=== PATIENT | female | born 1965 | race Caucasian/White ===

== ENCOUNTER 2024-03-06 05:55 | Day surgery (SDC) | payer OTHER, SELFPAY ==
--- NOTE | 2023-12-17 08:20 | CM ---
Addendum entered by Shanna Patton 01/31/24 11:22:
Patient's surgery date has been changed to 03/06/24. Spoke with patient via telephone. Reintroduced role of Orthopedic Navigator and confirmed information previously obtained for case management assessment. She states that her is still in
rehab and will be there when she has surgery. Also discussed orthopedic program and post surgical plans. Reviewed anticipated length of stay and that goal is for her to return home at discharge. Also reviewed outpatient PT. Patient is in agreement
with tentative plan and will go directly to outpatient PT at [facility]. She states that she will have support from her son and daughter.
Original Note:
Patient is scheduled for an elective L TKR on 01/17/24. Spoke with patient prior to surgery via telephone. Introduced role of Orthopedic Navigator. Patient reports that she lives with her (her was recently in rehab. His sister will be
coming to assist him when patient has her surgery), daughter, son-in-law, grandson and son in a two story home. There are three steps to enter and a flight of steps to the second floor. She currently functions independently. She has a shower seat.
She has never had VN services. PCP is Dr. Armida Maravilla.
Discussed orthopedic program and post surgical plans. Reviewed anticipated length of stay and that goal is for her to return home at discharge. Also Reviewed outpatient PT. Patient is in agreement with tentative plan and will go directly to
outpatient PT at [facility]. She will have support from her daughter and son when she goes home.
Patient will complete online education.
Plan: Orthopedic Navigator will remain available to assist with the care of patient and will reassess discharge needs after surgery.
[2023-12-27 14:17] VITALS: BMI 38.6
[2023-12-27 14:39] LABS: Hemoglobin 13.9 g/dL (12.0-16.0); Mean Corp Hgb Conc. 34.8 g/dL (33.0-37.0); Mean Corpuscular Hgb 28.3 pg (27.0-31.0); Mean Corpuscular Volume 81.3 fL (81.0-99.0); Red Blood Cell Count 4.92 10^6/uL (4.20-5.40); Red Cell Dist. Width 13.3 % (11.5-14.5); White Blood Cell Count 10.7 10^3/uL (4.8-10.8)
[2023-12-27 14:52] LABS: ALT (SGPT) 17 U/L (0-35); AST (SGOT) 26 U/L (14-36); Albumin 4.4 g/dl (3.5-5.0); Alkaline Phosphatase 128 U/L (38-126); Blood Urea Nitrogen 18 mg/dl (7-17); Calcium 9.4 mg/dl (8.4-10.2); Carbon Dioxide 26 mmol/L (22-30); Chloride 99 mmol/L (98-107); Estimated Creatinine Clearance 65 ml/min; Glucose 164 mg/dl (70-99); Potassium 4.2 mmol/L (3.5-5.1); Sodium 134 mmol/L (135-145); Total Bilirubin 1.1 mg/dl (0.2-1.3); Total Protein 7.7 g/dl (6.3-8.2); eGFR > 60.00
[2023-12-27 14:55] LABS: Glycohemoglobin (HgbA1c) 8.7 % (4.0-5.6)
[2023-12-27 15:24] LABS: Mean Platelet Volume 13.4 fL (7.4-10.4)
[2023-12-27 15:25] LABS: Platelet Count 93 10^3/uL (130-400)
--- NOTE | 2023-12-28 08:26 | W.PN.UPDATE ---
Update Note
Progress Note Update
Thrombocytopenia
Platelets 93-spoke to patient-this occasionally happens and was told she has low platelets from PCP. Has not had excessive bleeding following other surgeries. Await PCP note.
Type 2 IDDM uncontrolled A1C 8.7
Increased Tresiba insulin to 32Uinits and if tolerating advised 35U. Am sugar typically not <150. Advised strict carb control and to keep record of am pm sugar readings. Will discuss with her in one week.
Coronary risk factors
-increased risk due to age, obesity, DM, HTN, HLD
-Nuclear stress ordered by cards [facility] for 01/13.
[2024-02-11 12:11] VITALS: BMI 38.6
[2024-02-16 12:19] VITALS: BMI 38.0
[2024-02-16 14:06] LABS: Hematocrit 42.1 % (37.0-47.0); Hemoglobin 13.9 g/dL (12.0-16.0); Mean Corpuscular Hgb 27.4 pg (27.0-31.0); Mean Corpuscular Volume 82.9 fL (81.0-99.0); Red Blood Cell Count 5.08 10^6/uL (4.20-5.40); Red Cell Dist. Width 13.4 % (11.5-14.5); White Blood Cell Count 11.1 10^3/uL (4.8-10.8)
[2024-02-16 14:31] LABS: Glycohemoglobin (HgbA1c) 5.5 % (4.0-5.6)
[2024-02-16 14:44] LABS: ALT (SGPT) 11 U/L (0-35); AST (SGOT) 19 U/L (14-36); Albumin 4.3 g/dl (3.5-5.0); Alkaline Phosphatase 136 U/L (38-126); Blood Urea Nitrogen 20 mg/dl (7-17); Calcium 9.9 mg/dl (8.4-10.2); Carbon Dioxide 26 mmol/L (22-30); Chloride 99 mmol/L (98-107); Estimated Creatinine Clearance 63 ml/min; Glucose 45 mg/dl (70-99); Potassium 4.4 mmol/L (3.5-5.1); Sodium 135 mmol/L (135-145); Total Bilirubin 0.7 mg/dl (0.2-1.3); Total Protein 7.8 g/dl (6.3-8.2); eGFR > 60.00
[2024-02-16 14:51] LABS: Mean Platelet Volume 13.9 fL (7.4-10.4); Platelet Count 86 10^3/uL (130-400)
--- NOTE | 2024-02-16 15:19 | W.PREADMORTH ---
Ortho Preadmission Testing
-
Blood glucose today notably low at 45.
Pt has a history of well controlled diabetes. A1c today 5.5.
Pt did report not eating prior to her pre-op eval.
The patient, since then, has eaten lunch and feels well. Denies any lightheadedness.
Did ask that the patient have candy or juice near by in the event her BS drops too low in the future.
Her blood sugar will be checked the morning of her procedure and continuously throughout her admission.
Thrombocytopenia - chronic; however, platelet count has dropped from 93,000 12/2023 to 86,000 02/16/2024.
Will discuss with PCP prior to surgery.
--- NOTE | 2024-02-16 15:23 | HPS.HSE ---
Family Physician
-
Family Physician: Armida Maravilla
Chief Complaint
-
Advanced primary osteoarthritis of the left knee.
History of Present Illness
The patient is an 78-year-old female presenting today for advanced primary osteoarthritis of the left knee. She presents to [facility] today with complaints of significant left knee pain associated with her osteoarthritis. She
notes that her current left knee pain is greatly interfering with her activities of daily living and is overall impacting her quality of life. She has tried and failed multiple conservative treatment measures in the past for her left knee pain.
These conservative treatment measures include self therapeutic exercises, activity modification, corticosteroid injections, medical management with Tylenol, NSAIDs, Gabapentin, and Tramadol, and the application of ice and/or heat. Recent x-ray
findings of the left knee demonstrated advanced osteoarthritis, bone on bone in the medial compartment, and periarticular spurs about the patellofemoral compartment. She was determined to be in need of a left total knee arthroplasty. She denies any
current complaints today such as chest pain, shortness of breath, palpitations, nausea, vomiting, diarrhea, lightheadedness, dizziness, cough, sore throat, or fever.
Medical History
Past Medical History
Past Medical History: Reports Other
Additional Past Medical History:
1. Osteoarthritis.
2. Hypertension.
3. Hyperlipidemia.
4. Type 2 insulin-dependent diabetes with neuropathy, hemoglobin A1c 5.5.
5. Anxiety.
6. Osteoporosis.
7. Insomnia.
8. Mild leukocytosis, asymptomatic.
9. Chronic thrombocytopenia.
10. Obesity, BMI 38.0.
Past Surgical History: Reports Other
Additional Past Surgical History:
1. Right achillies tendon repair.
2. .
3. Multiple D&Cs.
Social History
Tobacco: Non-smoker
Alcohol: Occasional
Living: With Family (in a 2 story home. )
Family History
Family History: Not pertinent
Allergies / Home Medications
Allergy/Medication List:
HOME MEDICATIONS:
1. Jardiance 10 mg p.o. daily.
2. Gabapentin 600 mg p.o. three times a day.
3. Tresiba 28 units subcutaneous daily.
4. Avapro 300 mg p.o. daily.
5. Melatonin 10 mg p.o. at bedtime.
6. Meloxicam 15 mg p.o. daily.
7. Ozempic 1 mg subcutaneous weekly on Fridays.
8. Sertraline 100 mg p.o. daily.
9. Tramadol 50 mg p.o. three times a day.
ALLERGIES: Sulfa.
Review of Systems
-
A 12 point ROS was completed and negative except as noted: Yes
Physical Exam
Vital Signs
Blood pressure 129/72. Heart rate 74. Respirations 18. Pulse ox 95%.
Height 4 feet, 8.5 inches. Weight 78.2 kg. BMI 38.0.
Physical Exam
General: Well Developed, Well Nourished and No Apparent Distress
HEENT: NormoCephalic, Moist mucous membranes, Atraumatic and PERRLA
Respiratory: Clear
Cardiac: Regular Rhythm
GI: Soft, Non Tender, Non Distended and Other (Obese. )
Musculoskeletal: Other (Left knee: range of motion 10-110, mild pain with flexion, positive medial and lateral joint line tenderness with patellar grind. Small effusion. Mild instability to valgus stress. )
Skin: Warm and Dry
Neuro: AO x 3 and Nonfocal/grossly intact
Laboratory Results
-
02/16/24 12:16
02/16/24 12:16
Laboratory Results
Total Bilirubin 0.7 mg/dl (0.2-1.3) 02/16/24 12:16
AST 19 U/L (14-36) 02/16/24 12:16
ALT 11 U/L (0-35) 02/16/24 12:16
Alkaline Phosphatase 136 U/L (38-126) H 02/16/24 12:16
MRSA screen negative.
EKG 12/27/2023: Normal sinus rhythm.
Impression/Plan
-
IMPRESSION/PLAN:
1. Primary medical, Dr. Armida Zafar, pending.
Primary medical phone number: [phone].
2. Cardiology, Dr. Houston Art, pending.
3. Dental waived.
IMPRESSION/PLAN:
1. Advanced primary osteoarthritis of the left knee in need of a left total knee arthroplasty by Dr. Deshaun Hooks on 03/06/2024. The benefits and risks of the procedure have been explained to the patient. The patient understands these risks and
wishes to proceed.
2. Deep vein thrombosis prophylaxis: Aspirin with bilateral venous compression devices.
3. Chronic thrombocytopenia: This was discussed with the patient's primary care physician pre-operatively. Per the patient, her platelet count has always been low and she has never had issues with extensive bleeding after one of her prior
procedures. Although low, her primary care physician, Dr. Armida Zafar, anticipates no post-operative issues with her current platelet count.
4. Hypoglycemia on pre-operative testing: The patient's glucose was notably low in the setting of prolonged fasting. She was given advise pre-operatively on ways to increase her blood sugar if needed. Her blood sugar will be reassessed with an
AccuCheck the morning of her procedure.
Patient's phone number: [phone].
Patient's contact (Deanna Deleon - Daughter): [phone].
[2024-02-16 15:49] VITALS: BMI 38.0
[2024-03-06] VITALS (12 sets, daily range): BP systolic 113–166; BP diastolic 63–97; PULSE 75–80; O2SAT 98; BMI 38.0
[2024-03-06 06:28] LABS: Glucose - Point of Care 190 mg/dl (70-99)
[2024-03-06] MEDS: MOBIC 15 MG PO (06:31)
[2024-03-06] MEDS: TYLENOL 650 MG PO ×4 (06:31→21:00)
[2024-03-06] MEDS: NORMOSOL-R 1000 IV ×3 (06:31→19:29)
[2024-03-06] MEDS: BACTROBAN NASAL 1 GRAM NASAL (06:32)
[2024-03-06] MEDS: NOVOLOG vial 1 UNITS SC ×2 (06:51→09:20)
[2024-03-06] MEDS: DILAUDID 0.25 MG IV ×4 (08:55→09:29)
[2024-03-06 09:02] LABS: Glucose - Point of Care 249 mg/dl (70-99)
[2024-03-06] MEDS: ROXICODONE 5 MG PO (09:32)
[2024-03-06] MEDS: AVAPRO 300 MG PO (10:36)
[2024-03-06] MEDS: ZOLOFT 50 MG PO (10:37)
[2024-03-06] MEDS: NEURONTIN 600 MG PO ×3 (12:26→21:18)
[2024-03-06] MEDS: DILAUDID 0.5 MG IV ×2 (12:27→21:56)
--- NOTE | 2024-03-06 12:30 | W.PN.ORTHO ---
Today's Communication / Plan
-
D/c when clinically stable
Assessment
.
Distal Motor Intact: Yes
Dressing:
Clean, dry and intact.
Assessment:
L knee OA s/p L TKA w/ Dr Hooks 03/06/2024
DVT prophylaxis - ASA, b/l venous foot pumps
HTN - + parameters - monitor BP
Type 2 insulin-dependent diabetes with neuropathy, hemoglobin A1c 5.5 - monitor BS
- Resume home medications
- + SSI
- Diabetic, carb controlled diet
Chronic thrombocytopenia - monitor for potential bleeding
- Recheck platelet count in AM
- Minimize NSAIDs (except ASA) post-procedure to avoid drug induced thrombocytopenia
Hyperlipidemia
Anxiety
Osteoporosis
Insomnia
Mild leukocytosis, asymptomatic
Obesity, BMI 38.0
Plan
.
Surgery / Date: L TKA w/ Dr Hooks 03/06/2024
DVT Prophylaxis: Aspirin
Activity:
Out of bed.
PT/OT
Discharge Plan: Home w/ Outpatient PT
Subjective
.
.:
Patient resting comfortably in her chair.
L knee pain /10 but tolerable per patient.
Denies any new significant complaints.
Vital Signs and Labs
.
Vital Signs and Labs:
Lab Results
02/16/24 12:16
02/16/24 12:16
Temp Pulse Resp BP Pulse Ox
97.4 F 79 16 166/93 97
03/06/24 09:58 03/06/24 10:36 03/06/24 09:30 03/06/24 10:36 03/06/24 09:58
Physical Exam
-
HEENT: No pallor, cyanosis, or jaundice. Throat clear.
NECK: Supple. No JVD.
RESPIRATORY: Lungs clear to auscultation.
CVS: S1, S2 normal. RRR.�
ABDOMEN: Soft, non-tender. No distension. Obese.
EXTREMITIES: Strength equal, no calf pain with palpation/dorsiflexion. Calves soft.
ABRASIVE COATING MACHINE OPERATOR: AOx3. No focal deficits. payment manager grossly intact
[2024-03-06 12:32] LABS: Glucose - Point of Care 298 mg/dl (70-99)
[2024-03-06] MEDS: JARDIANCE 10 MG PO (12:32)
[2024-03-06] MEDS: LANTUS 0.280000000000000027 UNITS SC (12:32)
[2024-03-06] MEDS: NOVOLOG FLEXPEN-MODERATE RESISTANCE 5 UNITS SC (12:36)
[2024-03-06] MEDS: LIDOCAINE 4% PATCH 2 PATCH TOPICAL (12:44)
[2024-03-06] MEDS: TYLENOL PO ×2 (13:34→23:48)
[2024-03-06] MEDS: ANCEF 5 IV ×2 (15:04→22:34)
[2024-03-06 16:27] LABS: Glucose - Point of Care 348 mg/dl (70-99)
[2024-03-06] MEDS: NOVOLOG FLEXPEN-MODERATE RESISTANCE 7 UNITS SC (16:32)
[2024-03-06] MEDS: NOVOLOG FLEXPEN 2 UNITS SC (16:33)
[2024-03-06] MEDS: ASPIRIN 325 MG PO (18:04)
[2024-03-06] MEDS: BACTROBAN 2% OINTMENT 1 APPLIC NASAL (21:00)
[2024-03-06] MEDS: SENOKOT 17.1999999999999993 MG PO (21:00)
[2024-03-06] MEDS: COLACE 100 MG PO (21:00)
[2024-03-06] MEDS: PEPCID 20 MG PO (21:22)
[2024-03-06] MEDS: MELATONIN 10 MG PO (21:22)
[2024-03-06] MEDS: TOPROL XL 25 MG PO (21:38)
[2024-03-06 21:43] LABS: Glucose - Point of Care 218 mg/dl (70-99)
[2024-03-07] MEDS: TYLENOL 650 MG PO ×2 (00:17→09:06)
[2024-03-07 02:52] VITALS: BP 116/59
[2024-03-07] MEDS: TYLENOL PO ×3 (05:16→13:48)
[2024-03-07 06:00] VITALS: BMI 39.7
[2024-03-07 07:36] VITALS: BP 142/76
[2024-03-07 07:48] LABS: Platelet Count 78 10^3/uL (130-400)
[2024-03-07 07:48] LABS: Glucose - Point of Care 165 mg/dl (70-99)
--- NOTE | 2024-03-07 08:45 | CM ---
Addendum entered by Shanna Patton 03/07/24 12:07:
Patient needs a fran rolling walker for home use. Script obtained and given to PT.
Addendum entered by Shanna Patton 03/07/24 12:05:
Patient did well with therapy. She has no concerns about discharge plans and has updated her family.
Original Note:
Reviewed chart and held rounds with PT, OT and nursing. Patient admitted as planned for elective L TKR. Met with patient at bedside. Confirmed information previously obtained for assessment. Also discussed discharge plans. The plan is for patient to
return home at discharge. She will have support from her daughter and son other when she goes home. Patient will go directly to outpatient PT and will go to [facility]. She has an appointment scheduled for , 03/09.
Patient has a rolling walker (which was her husbands's; PT to evaluate need for fran rolling walker), cane, commode and shower seat.
She will use [facility] pharmacy for discharge prescriptions.
[2024-03-07] MEDS: AVAPRO 300 MG PO (09:06)
[2024-03-07] MEDS: COLACE 100 MG PO (09:06)
[2024-03-07] MEDS: ZOLOFT 50 MG PO (09:06)
[2024-03-07] MEDS: ASPIRIN 325 MG PO (09:06)
[2024-03-07] MEDS: SENOKOT 17.1999999999999993 MG PO (09:06)
[2024-03-07] MEDS: BACTROBAN 2% OINTMENT 1 APPLIC NASAL (09:07)
[2024-03-07] MEDS: LIDOCAINE 4% PATCH 2 PATCH TOPICAL (09:07)
[2024-03-07 09:10] VITALS: BP 128/65; BP 137/70; PULSE 84; O2SAT 95
[2024-03-07] MEDS: NOVOLOG FLEXPEN-MODERATE RESISTANCE 1 UNITS SC (09:10)
[2024-03-07] MEDS: NOVOLOG FLEXPEN 2 UNITS SC (09:11)
--- NOTE | 2024-03-07 09:14 | W.PN.ORTHO ---
Today's Communication / Plan
-
Await PT recs.
D/c later today if remaining clinically stable.
Assessment
.
Distal Motor Intact: Yes
Dressing:
Trace old incisional bleeding. Dressing otherwise C/D/I.
Assessment:
L knee OA s/p L TKA w/ Dr Hooks 03/06/2024
DVT prophylaxis - ASA, b/l venous foot pumps
HTN - + parameters - BPs overall stable
Type 2 insulin-dependent diabetes with neuropathy, hemoglobin A1c 5.5 - BS readings initially elevated 2* surgical stress, IV Decadron in OR, and holding of weekly Ozempic prior to surgery
- BS readings improving, however, w/ resumption of Jardiance, recent increase in Lantus, Novolog 2 units standing order and SSI AC
- Can resume usual diabetic regimen upon d/c
- Continue a diabetic, carb controlled diet
Chronic thrombocytopenia - no overt bleeding noted
- Platelet count 78,000 POD 1 (was 86,000 pre-op). Platelet count >70,000 should be adequate for healing.
- Minimize NSAIDs (except ASA) post-procedure to avoid drug induced thrombocytopenia
Hyperlipidemia
Anxiety
Osteoporosis
Insomnia
Mild leukocytosis, asymptomatic
Obesity, BMI 38.0
Plan
.
Surgery / Date: L TKA w/ Dr Hooks 03/06/2024
DVT Prophylaxis: Aspirin
Activity:
Out of bed.
PT/OT
Discharge Plan: Home w/ Outpatient PT
Subjective
.
.:
Patient resting comfortably in her chair this AM.
Did well w/ OT. Awaiting PT session.
L knee pain overall well controlled w/ minimal pain meds.
Eager for potential d/c today.
Vital Signs and Labs
.
Vital Signs and Labs:
Lab Results
03/07/24 04:27
02/16/24 12:16
Temp Pulse Resp BP Pulse Ox
98.7 F 79 16 142/76 95
03/07/24 07:36 03/07/24 07:36 03/07/24 07:36 03/07/24 07:36 03/07/24 07:36
Physical Exam
-
HEENT: No pallor, cyanosis, or jaundice. Throat clear.
NECK: Supple. No JVD.
RESPIRATORY: Lungs clear to auscultation.
CVS: S1, S2 normal. RRR.
ABDOMEN: Soft, non-tender. No distension. Obese.
EXTREMITIES: Post-surgical expected L knee edema. Strength equal, no calf pain with palpation/dorsiflexion. Calves soft.
BASE REMOVER: AOx3. No focal deficits. marketing and public relations manager grossly intact
[2024-03-07] MEDS: ROXICODONE 5 MG PO (10:10)
[2024-03-07] MEDS: JARDIANCE 10 MG PO (10:11)
[2024-03-07] MEDS: NEURONTIN 600 MG PO (10:12)
[2024-03-07 11:31] VITALS: BP 151/78
[2024-03-07 12:05] VITALS: BP 151/78; PULSE 75; O2SAT 97
--- NOTE | 2024-03-07 12:08 | W.DS.TRANS ---
DC Summary - Spiral Machine Operator
-
Discharge Instructions:
Sleep Apnea Risk Intermediate
Discharge Diagnosis/Procedures L knee OA s/p L TKA w/ Dr Hooks 03/06/2024
Diet Diabetic, Carb Controlled
Activity As tolerated,With Walker
Driving Restrictions Not until seen by your Dr
Bathing Restrictions OK to Shower
Other Services PT
Wound Care Dressing to be removed 1 week post-surgery.
Sara to be removed at 2 week follow-up
appointment with surgeon's office.
Instructions:
Stand-Alone Forms: Total Hip/Knee Replacement D/C
Changes to Home Medications: Yes
Discharge Medications:
DC Medications w/original date entered in [facility]
empagliflozin 10 mg tablet (Jardiance) 10 mg PO DAILY 12/27/23
insulin degludec 100 unit/mL (3 mL) subcutaneous pen (Tresiba FlexTouch U-100 insulin) 28 unit SC DAILY 12/27/23
melatonin 10 mg tablet 10 mg PO HS 12/27/23
mupirocin 2 % topical ointment 1 applic topical BID infection prevention #1 tube 12/27/23
semaglutide 1 mg/dose (4 mg/3 mL) subcutaneous pen injector (Ozempic) 1 mg SC FR 12/27/23
sertraline 100 mg tablet 50 mg PO DAILY 12/27/23
metoprolol succinate 25 mg tablet,extended release 24 hr 25 mg PO HS 03/01/24
acetaminophen 500 mg tablet (Tylenol Extra Strength) 1,000 mg (2 x 500 mg) PO Q6H #60 tabs 03/07/24
aspirin 325 mg tablet 325 mg PO DAILY #30 tabs 03/07/24
docusate sodium 100 mg capsule 100 mg PO BID #30 caps 03/07/24
famotidine 20 mg tablet 20 mg PO HS #30 tabs 03/07/24
gabapentin 600 mg tablet 600 mg PO TID #1 tab 03/07/24
irbesartan 300 mg tablet (Avapro) 300 mg PO DAILY #1 tab 03/07/24
lidocaine 4 % topical patch 2 patch topical DAILY #30 ea 03/07/24
ondansetron HCl 4 mg tablet 4 mg PO Q6H PRN nausea and vomiting #30 tabs 03/07/24
oxycodone 5 mg tablet 5 - 10 mg (1 - 2 x 5 mg) PO Q6H PRN moderate-severe pain #30 tabs 03/07/24
sennosides 8.6 mg tablet (Senna Laxative) 17.2 mg (2 x 8.6 mg) PO BID #30 tabs 03/07/24
Home Medication Changes
acetaminophen 500 mg tablet (Tylenol Extra Strength) 1,000 mg (2 x 500 mg) PO Q6H #60 tabs 03/07/24
aspirin 325 mg tablet 325 mg PO DAILY #30 tabs 03/07/24
docusate sodium 100 mg capsule 100 mg PO BID #30 caps 03/07/24
famotidine 20 mg tablet 20 mg PO HS #30 tabs 03/07/24
gabapentin 600 mg tablet 600 mg PO TID #1 tab 03/07/24
lidocaine 4 % topical patch 2 patch topical DAILY #30 ea 03/07/24
ondansetron HCl 4 mg tablet 4 mg PO Q6H PRN nausea and vomiting #30 tabs 03/07/24
oxycodone 5 mg tablet 5 - 10 mg (1 - 2 x 5 mg) PO Q6H PRN moderate-severe pain #30 tabs 03/07/24
sennosides 8.6 mg tablet (Senna Laxative) 17.2 mg (2 x 8.6 mg) PO BID #30 tabs 03/07/24
Pending Results: No
[2024-03-07] MEDS: NOVOLOG FLEXPEN SC (13:46)
[2024-03-07] MEDS: NOVOLOG FLEXPEN-MODERATE RESISTANCE SC (13:47)
--- NOTE | 2024-03-07 13:50 | PTCARENOTE ---
Pt refused POC glucose, stated she will eat lunch when she gets home (she is being discharged now) and will check her own sugar before she eats.
== END 2024-03-07 13:58 | disposition home or self-care (01) ==
LOC: SDS 05:55
PROVIDERS: ATTENDING PHYSICIAN Specialist; FAMILY PHYSICIAN Family Medicine; OTHER PHYSICIAN Nurse Practitioner Adult Health; OTHER PHYSICIAN Physician Assistant; OTHER PHYSICIAN Physician Assistant Medical
DX: M17.12 Unilateral primary osteoarthritis, left knee (principal); E66.9 Obesity, unspecified; Z68.38 Body mass index [BMI] 38.0-38.9, adult; M81.0 Age-related osteoporosis without current pathological fracture
CPT/HCPCS: 27447; C1776; 36415; 73560; 80053; 82962; 83036; 85027; 85049; 87070; 93005; 97110; 97116; 97162; 97166; 97530; 97535